=== PATIENT | male | born 1940 | race Caucasian/White ===

== ENCOUNTER → 2016-07-27 | Outpatient (CLI) | payer MEDICARE ==
[~2016-07-27] MED LIST: ALDACTONE DPS25 MG PO; AMOXICILLIN875 MG PO; ASA CHILDREN'S81 MG PO; BACTRIM DS DPS1 TAB PO; BRILINTA90 MG PO; DELTASONE DPS10 MG PO; HYTRIN2 MG PO; IMDUR DPS30 MG PO; LEVAQUIN500 MG PO; LIPITOR40 MG PO; MAG-OX400 MG PO; MAGNESIUM400 MG PO; MAGOX 400400 MG PO; METOPROLOL TART25 MG PO; PERCOCET 5-3251 EACH PO; PLAVIX75 MG PO; PROVENTIL HFA6.7 GM IH; PROVENTIL2.5 MG/3 M IH; SOD BICARB TAB650 MG PO; SODIUM BICARB PO; SODIUM BICARBO325 MG PO; TYLENOL DPS325 MG PO; ULTRAM DPS50 MG PO; VITAMIN D-32000 UNI1 PO; VITAMIN D-32000 UNIT PO; VITAMIN D32000 UNIT PO; ZESTORETIC 20/11 TAB PO; ZOLOFT DPS50 MG PO
== END | disposition home or self-care (01) ==
LOC: CARD 11:00
DX: R00.2 Palpitations (principal); R42 Dizziness and giddiness; R00.0 Tachycardia, unspecified; I49.1 Atrial premature depolarization; I49.3 Ventricular premature depolarization

== ENCOUNTER 2016-09-13 06:18 | Observation (INO) | payer MEDICARE ==
[~2016-09-13] VITALS: Ht 185.4 cm; Wt 71.0 kg
--- NOTE | ~2016-09-13 | CATH ---
Cardiac Diagnostic + PCI Report Demographics Patient Name JOSUE Vargas Gender Male Date of 1940 Age 75 year(s) Patient Number [id number] Date of Study 09/13/2016 Visit Number [id number] Room Number 429 Corporate ID Ht 185.42 cm Wt 70.76 kg Accession Number [id number] BSA 1.94 m kg/m Referring Sepideh Forde MD Primary Physician Physician Cindy Jacob MD Secondary Physician Physician Garry Diagnostic Nidia LATHAM Assisting Physician Physician Garry Interventional Nidia LATHAM Physician Portrait Studio Photographer Physician Garry Findings and Conclusions Diagnostic Findings and Conclusion 1. Triple vessel CAD. Diagnostic Recommendations 1. Immediate PCI to LCx. Interventional Findings and Conclusion 1. Attempted PCI to LCx, stents and angiosculpt balloon failed to cross lesions. 2. POBA to Lesions. Interventional Recommendations 1. Aborted procedure d/t renal insuffiancy 2. Will discuss Rotoblation vs Single CABG Procedure Description The patient was brought to the diagnostic cardiac catheterization laboratory in the fasting, non-sedated state. Informed consent was obtained in the written and verbal form after the risks and benefits were explained. The patient had no further questions and agreed to proceed. The planned puncture-incision site(s) were shaved and prepped with ChloraPrep and draped in the usual sterile manner. Conscious sedation, supplemental oxygen, and pain control medications were delivered by a registered nurse under physician guidance. Surface ECG rhythm, blood pressure measurement, and pulse oximetry were monitored throughout the procedure. Arterial access. The right radial access site was infiltrated with lidocaine. The vessel was entered with the Seldinger technique. A 6F radial sheath was advanced into the vessel and used for catheter placement. Selective left coronary angiography. A 6F Tig catheter was advanced into the left coronary vessel ostium under Fluoroscopic guidance. Contrast was injected by hand. Images were obtained in multiple projections. Selective right coronary angiography. A 6F Tig catheter was advanced into the right coronary vessel ostium under fluoroscopic guidance. Contrast was injected by hand. Images were obtained in multiple projections. Left heart catheterization. A 6F pigtail catheter was advanced across the aortic valve to the left ventricle under fluoroscopic guidance. Resting hemodynamics were obtained. Arterial artery hemostasis was achieved using a TR band. The patient was transferred to a regular nursing floor via cart accompanied by a nurse. The patient left the laboratory in stable condition. Diagnostic Cath Status: Elective Procedure Procedure Type Diagnostic procedure:Angiography:, Coronary Angios /[facility] PCI procedure:PTCA:, CFX Indications: Positive Nuclear: High. The procedure was explained in detail to the patient. Risks, complications and alternative treatments were reviewed. Written consent was obtained. Medications Reviewed with Patient prior to Procedure. Complications: No Complication. Angiographic Findings Dominance: Left Cardiac Arteries and Lesion Findings LMCA: Normal (0% Stenosis). LAD: Abnormal. Lesion on Mid LAD: 40% stenosis . LCx: Abnormal. Lesion on Mid CX: 80% stenosis . Devices used - [employer] GUIDEWIRE 180CM. Number of passes: 1. - CATH BAL RX EMERGE 3.0X15. 2 inflation(s) to a max pressure of: 10 aquiles. Lesion on Mid CX: 90% stenosis . Devices used - CATH BAL RX EMERGE 3.0X15. 1 inflation(s) to a max pressure of: 12 aquiles. - CATH BAL RX EMERGE 3.0X15. 1 inflation(s) to a max pressure of: 12 aquiles. RCA: Abnormal. Lesion on Prox RCA: 30% stenosis . Lesion on Mid RCA: 40% stenosis . Coronary Tree Procedure Data Procedure Date Date: 09/13/2016Start: 08:11 Entry Locations - Percutaneous access was performed through the Right Radial artery (Primary location). A 6 Fr sheath was inserted. Hemostasis was successfully obtained using a TR band. Procedure Medications Order and Administration + + + +--------+ !Time !Medication !Dosage !Route ! + + + +--------+ !09/13/2016 08:11 !Versed !1 mg !I.V. ! + + + +--------+ !09/13/2016 08:11 !Fentanyl !25 mcg !I.V. ! + + + +--------+ !09/13/2016 08:11 !Sodium Chloride !10 ml !I.V. ! + + + +--------+ !09/13/2016 08:18 !Fentanyl !25 mcg !I.V. ! + + + +--------+ !09/13/2016 08:18 !Versed !1 mg !I.V. ! + + + +--------+ !09/13/2016 08:29 !Fentanyl !25 mcg !I.V. ! + + + +--------+ !09/13/2016 08:30 !Heparin (ACC_3) !3000 units !I.V. ! + + + +--------+ !09/13/2016 08:30 !Brilinta (Ticagrelor) (ACC_20) !180 mg !P.O. ! + + + +--------+ !09/13/2016 08:49 !Versed !2 mg !I.V. ! + + + +--------+ !09/13/2016 08:49 !Fentanyl !25 mcg !I.V. ! + + + +--------+ !09/13/2016 08:49 !Sodium Chloride !20 ml !I.V. ! + + + +--------+ Devices Used - A6F TIG CATHETERwas used for:Coronary Angios. - ACATH 6FR PIG 145 110CM CATHETERwas used for:LV Pressures. - AGUIDE CATHETER 6FR XB 3.5 100CMwas used for:Circumflex Intervention. - AGUIDELINER CATHETERwas used for:Circumflex Intervention. Contrast Material - Isovue 12003 ml Fluoroscopy Time: Diagnostic: 12:24 minutes. Total: 12:24 minutes. Fluoroscopy Dose: Diagnostic: 947 mGy. Total: 947 mGy. Estimated Blood Loss: 12 ml. Medical History Performed Procedures and Imaging Results - Stress testing with SPECT MPIwas performed. Results were: Positive. Risk/Extent of ischemia was: High risk. Allergies - No known allergies. Risk Factors The patient risk factors include:treated hypertension, last creatinine: 1.8 mg/dl, creatinine clearance: 35.49 ml/min, former tobacco use and prior heart failure . Admission Data Admission Date: 09/13/2016 Admission Time: 08:40 Insurance Payors: Medicare. Clinical Evaluation Leading to Procedure Diagnosed on 09/13/2016 08:00 . - The patient's CAD presentation was assessed as: Stable angina. - The patient's anginal syndrome during the past two weeks was assessed as: Class III according to the [place] Cardiovascular [employer] Classification System (CCS). Anti-anginal medications were prescribed during the past two weeks. The medications are: Beta Blockers and Long Acting Nitrates. Hemodynamics Condition: Rest O2 Consumption: Estimated: 216.99Heart Rate: 62 bpm Pressures (mmHg) +-----+ + !Site !Pressure ! +-----+ + !AO !78/46 (61) ! +-----+ + !LV !99/-1 ,1 ! +-----+ + !AO !102/51 (74) ! +-----+ + !LV !94/-1 ,1 ! +-----+ + !AO !122/59 (86) ! +-----+ + Valve Gradients and Areas + +---------+---------+---------+ +---------+ + !Valve !Peak !Mean !Area !Index !Flow !Source ! + +---------+---------+---------+ +---------+ + !Aortic !0 !0 ! ! ! ! ! + +---------+---------+---------+ +---------+ + !Aortic !0 !0 ! ! ! ! ! + +---------+---------+---------+ +---------+ + Shunts Oxygen Values O2 Capacity 184.96 O2 Consumption 216.99 Discharge Data Discharge Date: 09/14/2016 Hospital Status: Inpatient Signatures
[~2016-09-13 06:18] MED LIST changes: -ALDACTONE DPS25 MG PO; -ASA CHILDREN'S81 MG PO; -BRILINTA90 MG PO; -IMDUR DPS30 MG PO; -LIPITOR40 MG PO; -METOPROLOL TART25 MG PO; -PERCOCET 5-3251 EACH PO; -PLAVIX75 MG PO; -SOD BICARB TAB650 MG PO; -VITAMIN D-32000 UNIT PO
[2016-09-15] MEDS ORDERED: ALDACTONE DPS25 MG PO (10:31)
[2016-09-15] MEDS ORDERED: HYTRIN2 MG PO (10:31)
[2016-09-15] MEDS ORDERED: ULTRAM DPS50 MG PO (10:31)
[2016-09-15] MEDS ORDERED: ZESTORETIC 20/11 TAB PO (10:31)
[2016-09-15] MEDS ORDERED: SOD BICARB TAB650 MG PO (10:31)
[2016-09-15] MEDS ORDERED: MAG-OX400 MG PO (10:31)
[2016-09-15] MEDS ORDERED: IMDUR DPS30 MG PO (10:32)
[2016-09-15] MEDS ORDERED: VITAMIN D-32000 UNIT PO (10:32)
[2016-09-15] MEDS ORDERED: METOPROLOL TART25 MG PO (10:32)
[2016-09-15] MEDS ORDERED: ASA CHILDREN'S81 MG PO (10:32)
[2016-09-15] MEDS ORDERED: LIPITOR40 MG PO (10:33)
[2016-09-15] MEDS ORDERED: BRILINTA90 MG PO (10:33)
[2017-01-03] MEDS ORDERED: PLAVIX75 MG PO (14:39)
[2017-01-03] MEDS ORDERED: TYLENOL DPS325 MG PO (14:39)
[2017-01-03] MEDS ORDERED: PERCOCET 5-3251 EACH PO (14:39)
== END 2016-09-14 10:23 | disposition home or self-care (01) ==
LOC: SSS 06:18 → 4PCU 08:40 → SSS 11:54 → 4PCU 09-14 10:23
PROVIDERS: ADMIT Internal Medicine Cardiovascular Disease
PROC: 4A023N7 Measurement of Cardiac Sampling and Pressure, Left Heart, Percutaneous Approach (ICD-10-PCS; principal; 2016-09-13)
DX: I25.118 Atherosclerotic heart disease of native coronary artery with other forms of angina pectoris (principal); I12.9 Hypertensive chronic kidney disease with stage 1 through stage 4 chronic kidney disease, or unspecified chronic kidney disease; N18.9 Chronic kidney disease, unspecified; N40.1 Benign prostatic hyperplasia with lower urinary tract symptoms; R33.8 Other retention of urine; F10.10 Alcohol abuse, uncomplicated; Z79.899 Other long term (current) drug therapy; Z79.82 Long term (current) use of aspirin; Z79.891 Long term (current) use of opiate analgesic